=== PATIENT | female | born 1960 | race Caucasian/White ===

== ENCOUNTER 2018-10-14 11:46 | Outpatient (CLI) | payer BC ==
[2018-10-14] VITALS (17 sets, daily range): BP systolic 94–122; BP diastolic 54–81
== END 2018-10-14 23:59 | disposition home or self-care (01) ==
LOC: CARD DIAG 11:46
PROVIDERS: ATTEND Nurse Practitioner Family
DX: R55 Syncope and collapse (principal)
CPT/HCPCS: 93660